=== PATIENT | female | born 1980 | race Caucasian/White ===

== ENCOUNTER 2019-07-19 21:57 | Emergency (ER) | payer BC ==
--- NOTE | 2019-07-19 22:04 | ED Physician Chart ---
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 Pt took Advil 600 mg with minimal effect. Allergies:: Allergies Allergy/AdvReac Type Severity Reaction Status Date / Time No Known Allergies Allergy Verified 08/30/16 19:46 ED Review of Systems - Review of Systems General/Constitutional: No fever, No chills Skin: No rash Head: No headache Eyes: No pain ENT: No nasal drainage Neck: No neck pain Cardio Vascular: other (bilateral lateral chest wall pain) Pulmonary: No SOB GI: No nausea, No vomiting Musculoskeletal: Other (bilateral upper flank pain) Neurological: No focal symptoms ED Past Medical History - Past Medical History Past Medical History: No significant medical hx Social History: Non Smoker, No Alcohol, No Drug Use Surgical History: other (b/l overian cysts removal ) Family Medical History - Family Member Mother History Unknown: Yes Ethnicity: Hx Family Cancer: No Hx Family Coronary Artery Disease: No Hx Family Congestive Heart Failure: No Hx Family Hypertension: No Hx Family Stroke: No Hx Family Diabetes: No Hx Family Seizures: No Hx Family Dementia: No Hx Family AIDS: No Hx Family HIV: No Hx Family COPD: No Hx Family Hepatitis: No Hx Family Psychiatric Problems: No Hx Family Tuberculosis: No ED Physical Exam - Physical Examination General/Constitutional: Awake, Alert Head: Atraumatic Eyes: PERRL, EOMI Skin: No skin lesions ENMT: Nasal exam nl Neck: No nuchal rigidity Respiratory: Clear to Auscultation, No Wheeze/Rhonchi/Rales Cardio Vascular: RRR, No murmur, gallop, rubs, NL S1 S2 GI: No tenderness/rebounding/guarding Other comments:: No CVA percussion tenderness Extremities: normal strength in all extremities Other Extremities comments:: bilateral upper flank tenderness, left worse than right Neuro/Psych: No focal deficits ED Labs/Radiology/EKG Results - Lab Results Results: Laboratory Last Values Urine Source MIDSTREAM 07/19/19 22:35 Urine Color YELLOW 07/19/19 22:35 Urine Clarity SLIGHT HAZY (CLEAR) 07/19/19 22:35 Urine pH 6.0 (4.6 - 8.0) 07/19/19 22:35 Ur Specific [place] 1.020 (1.005-1.030) 07/19/19 22:35 Urine Protein NEGATIVE mg/dL (NEGATIVE) 07/19/19 22:35 Urine Glucose (UA) NEGATIVE mg/dL (NEGATIVE) 07/19/19 22:35 Urine Ketones NEGATIVE mg/dL (NEGATIVE) 07/19/19 22:35 Urine Blood NEGATIVE (NEGATIVE) 07/19/19 22:35 Urine Nitrate NEGATIVE (NEGATIVE) 07/19/19 22:35 Urine Bilirubin NEGATIVE (NEGATIVE) 07/19/19 22:35 Urine Urobilinogen 0.2 E.U./dL (0.2 - 1.0) 07/19/19 22:35 Ur Leukocyte Esterase TRACE (NEGATIVE) H 07/19/19 22:35 Urine RBC 0-2 /hpf (0-5) 07/19/19 22:35 Urine WBC 0-2 /hpf (0-5) 07/19/19 22:35 Ur Epithelial Cells RARE /lpf (FEW) 07/19/19 22:35 Urine Bacteria NONE SEEN /hpf (NONE SEEN) 07/19/19 22:35 Urine Test NEGATIVE 07/19/19 22:35 Urine Opiates Screen NEGATIVE (NEGATIVE) 07/19/19 22:35 Urine Methadone Screen NEGATIVE (NEGATIVE) 07/19/19 22:35 Ur Barbiturates Screen NEGATIVE (NEGATIVE) 07/19/19 22:35 Ur Tricyclics Screen NEGATIVE (NEGATIVE) 07/19/19 22:35 Ur Phencyclidine Scrn NEGATIVE (NEGATIVE) 07/19/19 22:35 Amphetamines Screen NEGATIVE (NEGATIVE) 07/19/19 22:35 U Methamphetamines Scrn NEGATIVE (NEGATIVE) 07/19/19 22:35 U Benzodiazepines Scrn POSITIVE (NEGATIVE) H 07/19/19 22:35 U Cocaine Metab Screen NEGATIVE (NEGATIVE) 07/19/19 22:35 U Cannabinoids Screen NEGATIVE (NEGATIVE) 07/19/19 22:35 ED Assessment - Assessment General Assessment: Bilateral flank muscle spasm Substance abuse Assessment/Comments:: Urinalysis and urine drug screen Toradol 30 mg IM Flexeril 10 mg PO x 1 ED Septic Shock - . Is Septic Shock (SBP<90, OR Lactate>4 mmol\L) present?: No ED Reassessment (Disposition) - Reassessment Reassessment Condition:: Improved - Aftercare/Follow up Instructions Medication Prescribed:: Flexeril 10 mg PO q8h prn muscle spasm, #6 F/u PCP or return to ER if symptoms worsen - Patient Disposition Discharge/Transfer:: Home
[2019-07-19 22:43] LABS: URINE SOURCE MIDSTREAM
[2019-07-19 22:45] LABS: URINE BILIRUBIN NEGATIVE (NEGATIVE); URINE BLOOD NEGATIVE (NEGATIVE); URINE GLUCOSE (UA) NEGATIVE (NEGATIVE); URINE KETONE NEGATIVE (NEGATIVE); URINE LEUKOCYTE ESTERASE TRACE (NEGATIVE); URINE MICROSCOPIC INDICATED? YES; URINE NITRATE NEGATIVE (NEGATIVE); URINE PROTEIN NEGATIVE (NEGATIVE); URINE UROBILINOGEN 0.2 E.U./dL (0.2 - 1.0)
[2019-07-19 22:50] LABS: URINE CLARITY SLIGHT HAZY (CLEAR); URINE COLOR YELLOW
[2019-07-19 23:06] LABS: AMPHETAMINE URINE NEGATIVE (NEGATIVE); BARBITURATES URINE NEGATIVE (NEGATIVE); BENZODIAZEPINES QUAL URINE POSITIVE (NEGATIVE); CANNABINOID THC NEGATIVE (NEGATIVE); COCAINE METABOLITE QUAL URINE NEGATIVE (NEGATIVE); METHADONE URINE NEGATIVE (NEGATIVE); METHAMPHETAMINES QUAL URINE NEGATIVE (NEGATIVE); OPIATES (MORPHINE) QUAL. URINE NEGATIVE (NEGATIVE); PHENCYCLIDINE (PCP) URINE NEGATIVE (NEGATIVE); TRICYCLICS (TCA) QUAL. URINE NEGATIVE (NEGATIVE)
[2019-07-19 23:43] LABS: URINE BACTERIA NONE SEEN /hpf (NONE SEEN); URINE EPITHELIAL CELLS RARE /lpf (FEW); URINE RBC 0-2 /hpf (0-5); URINE WBC 0-2 /hpf (0-5)
== END 2019-07-20 00:28 | disposition home or self-care (01) ==
LOC: ER 21:57
DX: R10.12 Left upper quadrant pain (principal); R10.11 Right upper quadrant pain; F19.10 Other psychoactive substance abuse, uncomplicated; M62.838 Other muscle spasm
CPT/HCPCS: 99283; 96372; 80307; 81025; 81001; J1885; Z7502; Z7610

== ENCOUNTER 2019-08-03 20:51 | Observation (INO) | payer BC ==
[2019-08-03 21:47] LABS: % BASOPHILS 0.5 % (0.0-2.0); % EOSINOPHILS 1.5 % (0.0-5.0); % LYMPHOCYTES 40.7 % (20.0-50.0); % MONOCYTES 6.5 % (2.0-10.0); % NEUTROPHILS 50.8 % (40.0-80.0); EOSINOPHILE ABSOLUTE 0.1 Th/cmm (0.1-0.4); HEMATOCRIT 36.7 % (41.0-60); HEMOGLOBIN 12.5 gm/dL (12-16); LYMPHOCYTE ABSOLUTE 2.6 Th/cmm (1.5-3.0); MEAN CELL VOLUME 88.1 fl (81-100); MEAN CORPUSCULAR HEMOGLOBIN 29.9 pg (27.0-31.0); MEAN CORPUSCULAR HGB CONC 33.9 pg (28.0-36.0); MONOCYTE ABSOLUTE 0.4 Th/cmm (0.3-1.0); NEUTROPHILE ABSOLUTE 3.2 Th/cmm (1.8-8.0); PLATELET COUNT 278 Th/cmm (150-400); RED BLOOD COUNT 4.17 Mil/cmm (3.80-5.10); RED CELL DISTRIBUTION WIDTH 12.4 % (11.5-20.0); WHITE BLOOD COUNT 6.3 Th/cmm (4.8-10.8)
[2019-08-03 22:08] LABS: ALB/GLOB RATIO 1.5 (1.0-1.8); ALKALINE PHOSPHATASE 42 U/L (34-104); ANION GAP 12.3 (7.0-16.0); BILIRUBIN,TOTAL 0.5 mg/dL (0.3-1.0); BUN - UREA NITROGEN 16 mg/dL (7-25); CALCIUM SERUM 9.3 mg/dL (8.6-10.3); CARBON DIOXIDE 26.3 mEq/L (21.0-31.0); CHLORIDE 103 mEq/L (98-107); CREATININE - SERUM 0.7 mg/dL (0.6-1.2); GFR AFRICAN-AMERICAN > 60.0 ml/min (>90); GFR NON AFRICAN-AMERICAN > 60.0 ml/min; GLUCOSE 99 mg/dL (70-105); POTASSIUM SERUM 3.6 mEq/L (3.5-5.1); SGOT 14 U/L (13-39); SGPT/ALT 8 U/L (7-52); SODIUM SERUM 138 mEq/L (136-145); TOTAL PROTEIN,SERUM 6.7 gm/dL (6.0-8.3)
[2019-08-03] MEDS ORDERED: Aspirin 325 mg EC PO ONE (22:18)
--- NOTE | 2019-08-03 23:03 | ED Physician Chart ---
ED Chief Complaint/HPI - Patient Information Date Seen:: 08/03/19 Time Seen:: 21:00 Chief Complaint:: throat tightness heaviness s/p exercise History of Present Illness:: 3 days hx of cardiac arrthymia no fh no hx ihd just know something is wrong Allergies:: Allergies Allergy/AdvReac Type Severity Reaction Status Date / Time No Known Allergies Allergy Verified 08/03/19 21:08 Vitals:: Vital Signs - 8 hr 08/03/19 20:55 Temp 98.6 F HR 74 RR 18 BP 120/83 O2 Sat % 99 Historian:: Patient Review:: Nurse's Note Reviewed ED Review of Systems - Review of Systems General/Constitutional: No fever Skin: No skin lesions Head: No headache Eyes: No loss of vision ENT: No earache Neck: No neck pain (heaviness chest soreness around neck) Cardio Vascular: Palpitations Pulmonary: No SOB GI: No nausea Musculoskeletal: No bone or joint pain Endocrine: No polyuria Psychiatric: Anxiety Hematopoietic: No bruising Allergic/Immuno: No urticaria Neurological: No syncope ED Past Medical History - Past Medical History Past Medical History: Renal stone (dysrthmia) Family History: None Social History: Non Smoker, No Alcohol Family Medical History - Family Member Mother History Unknown: Yes Ethnicity: Hx Family Cancer: No Hx Family Coronary Artery Disease: No Hx Family Congestive Heart Failure: No Hx Family Hypertension: No Hx Family Stroke: No Hx Family Diabetes: No Hx Family Seizures: No Hx Family Dementia: No Hx Family AIDS: No Hx Family HIV: No Hx Family COPD: No Hx Family Hepatitis: No Hx Family Psychiatric Problems: No Hx Family Tuberculosis: No ED Labs/Radiology/EKG Results - Lab Results Results: Laboratory Tests 08/03/19 08/03/19 21:40 21:40 WBC 6.3 RBC 4.17 Hgb 12.5 Hct 36.7 L MCV 88.1 MCH 29.9 MCHC Differential 33.9 RDW 12.4 Plt Count 278 MPV 8.6 Neutrophils % 50.8 Lymphocytes % 40.7 Monocytes % 6.5 Eosinophils % 1.5 Basophils % 0.5 Sodium 138 Potassium 3.6 Chloride 103 Carbon Dioxide 26.3 Anion Gap 12.3 BUN 16 Creatinine 0.7 Est GFR ( Amer) > 60.0 Est GFR (Non-Af Amer) > 60.0 BUN/Creatinine Ratio 22.9 Glucose 99 Calcium 9.3 Total Bilirubin 0.5 AST 14 ALT 8 Alkaline Phosphatase 42 Total Protein 6.7 Albumin 4.0 Globulin 2.7 Albumin/Globulin Ratio 1.5 ED Assessment - Assessment General Assessment: diffuse t wave inversion ED Septic Shock - . Is Septic Shock (SBP<90, OR Lactate>4 mmol\L) present?: No - <6hrs of presentation: Vital Signs: Vital Signs - 8 hr 08/03/19 20:55 Temp 98.6 F HR 74 RR 18 BP 120/83 O2 Sat % 99 ED Reassessment (Disposition) - Reassessment Reassessment Condition:: Unchanged - Patient Disposition Discharge/Transfer:: Acute Care w/in this hosp (no ischemic symtoms at admission )
[2019-08-04 01:50] VITALS: BP 110/84
[2019-08-04] MEDS ORDERED: Aspirin 81mg Chewable Tab PO SCH (09:00)
--- NOTE | 2019-08-04 10:01 | Diagnostic Imaging Report ---
CHEST X-RAY: AP view INDICATION: pain COMPARISON: None FINDINGS: There is no focal consolidation or pleural effusions The heart is normal in size. The osseous structures are intact. No evidence of pneumothorax. IMPRESSION: No evidence of pneumothorax. No focal consolidation identified.
--- NOTE | 2019-08-04 16:48 | History & Physical ---
ADMIT DATE: 08/04/2019 CHIEF COMPLAINT: Intermittent palpitations since Thursday, neck tightness. 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 Symptoms lasted for 5 minutes and resolved ____ symptoms on and off. On Thursday, Thursday and Thursday, her symptoms lasted for long time ____ the patient decided to go to Emergency Room. The patient's went to Emergency Room where the patient was noted to have T-wave inversion. Her cardiac enzymes were negative. Other blood tests were unremarkable. The patient was advised to be admitted. When I talked to the Emergency Room MD, he insisted that the patient must be admitted. The patient was admitted by me over night. I am seeing this patient. The patient is completely symptoms free. She wants to go at this time since her symptoms have completely resolved and have never come back. PAST MEDICAL HISTORY: Remarkable for cardiac arrhythmia. MEDICATIONS AT HOME: None. ALLERGIES: None. SOCIAL HISTORY: She works as a tennis camp instructor. No history of smoking cigarette. Occasional alcohol use. No drug use. FAMILY MEDICAL HISTORY: Negative for premature coronary artery disease, congestive heart failure, diabetes, hypertension. REVIEW OF SYSTEMS: The patient denies any headache, blurred vision, double vision, dysphagia, odynophagia, runny nose, stuffy nose, fever, chills, cough, chest pain, shortness of breath, palpitation, dizziness, nausea, vomiting, diarrhea, dysuria, hematuria, hematochezia, melena. No history of any vaginal bleeding. No history of any suicidal or homicidal ideation. PHYSICAL EXAMINATION: GENERAL: The patient is alert, awake, oriented, lying in the bed without any acute distress. VITAL SIGNS: Temperature 98.6, pulse is 64, respiratory rate 18, blood pressure 110/80. SKIN: Warm to touch. Adequate skin turgor. No petechia. No purpura. HEENT: Normocephalic, atraumatic. Extraocular muscles are intact. Tongue was pink and coated. Poor dentition noted. No oral lesions. No exudate. No sinus tenderness. NECK: Supple. No JVD. No hepatojugular reflex. No lymphadenopathy, thyromegaly or carotid bruit. HEART: Both heart sounds are regular. No S3. No S4. No murmur. CHEST AND LUNGS: Equal in expansion. No expiratory wheezing. ABDOMEN: Soft. No guarding. No rigidity. Liver, spleen palpable. No palpable mass. Bowel sounds are present. EXTREMITIES: No edema. No cyanosis or clubbing. Pulses are +2. No calf tenderness noted. NEUROLOGIC: Nonfocal. PELVIC: Not done. AVAILABLE DIAGNOSTIC DATA: Performed in the Emergency Room reviewed. Total time reviewing the records is approximately 2 minutes. CLINICAL IMPRESSION: A 39-year-old female with a history of cardiac arrhythmia, presented to Emergency Room for intermittent palpitation associated with neck tightness. The patient did not have any symptoms since the patient has been admitted. Preliminary workup is nondiagnostic. RECOMMENDATIONS: The patient needs to have further workup to be done, which include 2D echocardiogram, Holter monitor and possible stress test and thyroid function test to be done, which I did discuss. PLAN: The patient insists to go at this time and I did discuss that since the patient is asymptomatic and the patient may have SVT, the patient may need further evaluation, which I advised the patient can stay in the hospital and can be performed, but the patient insists that the patient wants to go home. Based on her current physical examination as well as the diagnostic studies performed in the Emergency Room, I do think the patient can have this workup to be done as an outpatient. I did discuss with the patient that the patient must see her knit tubing dyer MADDISON and have Cardiology referral. If the patient has another symptoms, the patient should go to Emergency Room or call 911, which the patient has fully understood. I reviewed this plan with the patient and the patient's family at bedside. The patient was not given any prescription. The patient will be followed by her knit tubing dyer this week as well. Report has been given to the patient as well. JOB# [id number]
== END 2019-08-04 12:50 | disposition home or self-care (01) ==
LOC: ER 20:51 → TELE 08-04 01:03
PROVIDERS: ADMIT Internal Medicine; ATTEND Internal Medicine
DX: R07.89 Other chest pain (principal); R00.2 Palpitations
CPT/HCPCS: 36415-UA; 71045-TC; 80053-TC; 82550-TC; 83880-TC; 84484-TC; 85025-TC; 93005; G0378